=== PATIENT | male | born 1950 | race Caucasian/White ===

== ENCOUNTER 2017-07-10 18:05 | Emergency (ER) | payer OTHER ==
[~2017-07-10] VITALS: Ht 180.3 cm; Wt 105.0 kg
[2017-07-10 18:25] VITALS: BP 201/88; PULSE 79; RESP 16; TEMP 97.7; O2SAT 98
[2017-07-10] MEDS ORDERED: SODIUM CHLOR 0.9% 1000 ML INJ 1,000 ML IV SCH (19:44)
[2017-07-10] MEDS ORDERED: SODIUM CHLORIDE 0.9% FLUSH 10 ML FLUSH IVF PRN (19:45)
[2017-07-10 19:55] VITALS: RESP 18; O2SAT 97
[2017-07-10 20:10] VITALS: BP 160/75; PULSE 72; RESP 18; O2SAT 99
--- NOTE | 2017-07-10 20:34 | PD ---
HPI Chief Complaint: Complaint Time Seen by Provider: 19:18 Travel History International Travel<30 days: No Contact w/Intl Traveler<30days: No Traveled to known affect area: No History of Present Illness HPI 67 YO M with PMH of macular degeneration, Villanueva's esophagus, CKD, BPH, peripheral neuropathy, PTSD presents to the ED for evaluation of 5 day history of dark red urine. Patient states that he passed a lot of clot 4 days ago, called his primary care. He was placed on Cipro and has been compliant with the medication. He states that his urine is still very dark despite this treatment. He denies fever, chills, nausea, vomiting. He endorses bilateral back pain which he attributes to "kidney pain." He is a non-smoker for over 20 years. States that he has a baseline anemia around 12 or 13 that has been extensively explored with no acute findings. 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) Neurologic: Yes (WET MACULAR EYE INJECT) Psychiatric: Yes (PTSD) Immunizations Current: Yes Past Surgical History Eye Surgery: Yes Social History Alcohol Use: Yes Tobacco Use: No Substance Use: No Allergies-Medications (Allergen,Severity, Reaction): Coded Allergies: No Known Allergies (Unverified , 07/10/17) Reported Meds & Prescriptions Reported Meds & Active Scripts Active Reported Hydrocodone-Acetaminophen 7.5 Mg-325 Mg Tab 1 Tab PO Q6H PRN Xanax (Alprazolam) 0.5 Mg Tab 0.5 Mg PO Q6H PRN [place]-3 Fish Oil/Vitamin (Fish Oil-Cholecalciferol) 1,000-1,000 Mg Cap 2 Cap PO BID Terazosin (Terazosin HCl) 2 Mg Cap 4 Mg PO HS Ibuprofen 800 Mg Tab 800 Mg PO Q6HR PRN Prilosec (Omeprazole Magnesium) 20 Mg Tab 20 Mg PO BID Hydrochlorothiazide 25 Mg Tab 25 Mg PO DAILY Metoprolol Tartrate 50 Mg Tab 50 Mg PO BID Gabapentin 300 Mg Cap 900 Mg PO TID Review of Systems Except as stated in HPI: all other systems reviewed are Neg Physical Exam Narrative GENERAL: Well-nourished, well-developed white male no acute distress.. SKIN: Focused skin assessment warm/dry. HEAD: Normocephalic. EYES: No scleral icterus. No injection or drainage. NECK: Supple, trachea midline. No JVD or lymphadenopathy. CARDIOVASCULAR: Regular rate and rhythm without murmurs, gallops, or rubs. RESPIRATORY: Breath sounds equal bilaterally. No accessory muscle use. GASTROINTESTINAL: Abdomen soft, non-tender, nondistended. Active bowel sounds. Positive right-sided flank tenderness. MUSCULOSKELETAL: No cyanosis, or edema. BACK: Nontender without obvious deformity. Positive right-sided CVA tenderness. Data Data Last Documented VS Vital Signs Date Time Temp Pulse Resp B/P (MAP) Pulse Ox O2 Delivery O2 Flow Rate FiO2 07/10/17 22:11 07/10/17 20:10 72 18 99 Room Air 07/10/17 18:25 97.7 Orders Orders Basic Metabolic Panel (Bmp) (07/10/17 19:44) Complete Blood Count With Diff (07/10/17 19:44) Ua Includes Microscopic (07/10/17 19:44) Ct Abd/Pel W/O Iv Contrast (07/10/17 19:44) Sodium Chloride 0.9% Flush (Ns Flush) (07/10/17 19:45) Iv Access Insert/Monitor (07/10/17 19:44) Ecg Monitoring (07/10/17 19:44) Oximetry (07/10/17 19:44) NPO (07/10/17 19:44) Sodium Chlor 0.9% 1000 Ml Inj (Ns 1000 M (07/10/17 19:44) Potassium Chloride (Kcl) (07/10/17 21:15) Calcium Carbonate Chew (Tums Chew) (07/10/17 21:15) Ed Discharge Order (07/10/17 21:35) Labs Laboratory Tests Test 07/10/17 19:59 07/10/17 20:01 Urine Color LIGHT-RED Urine Turbidity HAZY Urine pH 6.0 Urine Specific [place] 1.012 Urine Protein 30 mg/dL Urine Glucose (UA) NEG mg/dL Urine Ketones NEG mg/dL Urine Occult Blood LARGE Urine Nitrite NEG Urine Bilirubin NEG Urine Urobilinogen LESS THAN 2.0 MG/DL Urine Leukocyte Esterase NEG Urine RBC 159 /hpf Urine WBC 30 /hpf Urine Squamous Epithelial Cells 1 /hpf Urine Bacteria RARE /hpf Urine Mucus FEW /lpf White Blood Count 5.1 TH/MM3 Red Blood Count 4.43 MIL/MM3 Hemoglobin 13.6 GM/DL Hematocrit 39.0 % Mean Corpuscular Volume 87.9 FL Mean Corpuscular Hemoglobin 30.7 PG Mean Corpuscular Hemoglobin Concent 34.9 % Red Cell Distribution Width 12.7 % Platelet Count 196 TH/MM3 Mean Platelet Volume 7.6 FL Neutrophils (%) (Auto) 49.6 % Lymphocytes (%) (Auto) 36.0 % Monocytes (%) (Auto) 10.7 % Eosinophils (%) (Auto) 3.1 % Basophils (%) (Auto) 0.6 % Neutrophils # (Auto) 2.5 TH/MM3 Lymphocytes # (Auto) 1.8 TH/MM3 Monocytes # (Auto) 0.5 TH/MM3 Eosinophils # (Auto) 0.2 TH/MM3 Basophils # (Auto) 0.0 TH/MM3 CBC Comment DIFF FINAL Differential Comment Blood Urea Nitrogen 21 MG/DL Creatinine 1.34 MG/DL Random Glucose 128 MG/DL Calcium Level 8.4 MG/DL Sodium Level 138 MEQ/L Potassium Level 3.3 MEQ/L Chloride Level 102 MEQ/L Carbon Dioxide Level 27.4 MEQ/L Anion Gap 9 MEQ/L Estimat Glomerular Filtration Rate 53 ML/MIN MDM Medical Decision Making Medical Screen Exam Complete: Yes Emergency Medical Condition: Yes Differential Diagnosis Hemorrhagic cystitis versus nephroureterolithiasis versus bladder tumor versus other Narrative Course 67 YO M with PMH of macular degeneration, Villanueva's esophagus, CKD, BPH, peripheral neuropathy, PTSD presents to the ED for evaluation of 5 day history of dark red urine. Patient states that he passed a lot of clot 4 days ago, called his primary care. He was placed on Cipro and has been compliant with the medication. He states that his urine is still very dark despite this treatment. States that he has a baseline anemia around 12 or 13 that has been extensively explored with no acute findings. Vitals reviewed. Patient is hypertensive in triage, this improves in the exam room. On exam the patient has some right-sided tenderness to palpation in right flank tenderness. No suprapubic pain noted. Urine is very cloudy. IV was established. Patient was ministered 1 L normal saline. CBC: WBC 5.1. Hemoglobin 13.6. Hematocrit 39.0. CMP: Potassium 3.3. BUN 21, creatinine 1.34. Calcium 8.4. UA: Light red, hazy, large occult blood, 159 RBCs, 30 WBCs. No culture indicated. CT abdomen pelvis: Multiple polypoid nodule from the wall of the urinary bladder , largest measuring 1.7 and 1.5 cm. Possibly TCC, cystoscopy recommended. No other acute findings. Potassium and calcium were replaced orally. I spoke with Dr. Hunter, on-call urologist by phone. He recommends close outpatient follow-up. I discussed the results of the workup with the patient. We discussed signs of anemia, urinary obstruction. The patient was provided a copy of his CT results. He is instructed to discontinue Cipro. He indicated good understanding of the discharge instructions. I think he is reliable for return if symptoms worsen. He is provided with Dr. Hunter' contact information. He is stable and discharged home. Diagnosis Primary Impression: Hematuria Qualified Codes: R31.9 - Hematuria, unspecified Additional Impression: Bladder tumor Referrals: Ambrosio Hunter MD Additional Instructions: Rest, hydrate. Resume at home medications as previously prescribed. Discontinue Cipro antibiotics as discussed. Call Dr. Hunter' office tomorrow for follow-up. Follow-up with Dr. Thomas as discussed, especially if there are delays with seeing Dr. Hunter. Return to the ED if you are unable to produce urine. Return to the ED for worsening symptoms or any urgent or emergent medical condition. Disposition: 01 DISCHARGE HOME Condition: Stable Katharine Lanza Jul 10, 2017 20:34
[2017-07-10 20:42] LABS: AUTOMATED NEUTROPHIL # 2.5 TH/MM3 (1.8-7.7); BASOPHIL % 0.6 % (0.0-2.0); EOSINOPHIL # 0.2 TH/MM3 (0-0.4); EOSINOPHIL % 3.1 % (0.0-4.0); HEMOGLOBIN 13.6 GM/DL (13.0-17.0); LYMPHOCYTE # 1.8 TH/MM3 (1.0-4.8); MEAN CELL VOLUME 87.9 FL (80.0-100.0); MEAN CORPUSCULAR HEMOGLOBIN 30.7 PG (27.0-34.0); MEAN CORPUSCULAR HGB CONC 34.9 % (32.0-36.0); MEAN PLATELET VOLUME 7.6 FL (7.0-11.0); MONO % 10.7 % (0.0-8.0); MONOCYTE # 0.5 TH/MM3 (0-0.9); NEUT % 49.6 % (16.0-70.0); PLATELET COUNT 196 TH/MM3 (150-450); RED BLOOD COUNT 4.43 MIL/MM3 (4.50-5.90); RED CELL DISTRIBUTION WIDTH 12.7 % (11.6-17.2); WHITE BLOOD COUNT 5.1 TH/MM3 (4.0-11.0)
--- NOTE | 2017-07-10 20:44 | RADRPT ---
EXAM DATE: 07/10/2017 8:26 PM EDT AGE/SEX: 67 years / Male INDICATIONS: Bilateral flank pain. CLINICAL DATA: This is the patient's initial encounter. Patient reports that signs and symptoms have been present for 1 day and indicates a pain score of 0/10. MEDICAL/SURGICAL HISTORY: Hypertension. Diabetes. None. RADIATION DOSE: 28.42 CTDI (mGy) COMPARISON: No prior [facility] exams available for comparison. TECHNIQUE: Multiple contiguous axial images were obtained through the abdomen. Images were obtained using multiple row detector helical technique. Using dose reduction techniques, radiation dose was ke pt as low as reasonably achievable to obtain optimal diagnostic quality images. FINDINGS: Lower Lungs: The visualized lower lungs are clear. Liver: The liver has a homogeneous density without space-occupying lesion. There is no dilation of th e biliary tree. Spleen: Homogeneous density without enlargement. Pancreas: Unremarkable without mass or calcification. Kidneys: Normal in size and shape. No evidence of mass or hydronephrosis. Adrenal Glands: Unremarkable. Aorta: The aorta and proximal iliac vessels are grossly unremarkable without aneurysmal dilation. Bowel/Mesentery: The bowel loops are grossly unremarkable. The cecum and sigmoid colon have a normal configuration. Abdominal Wall: Intact. Retroperitoneum: No evidence of adenopathy in the retrocrural, para-aortic, or deep pelvic regions. Bladder: Multiple polypoid nodules arise from the wall of the urinary bladder with the largest 2 rain suring 1.7 and 1.5 cm raising possibility of transitional cell carcinoma of the bladder. Cystoscopy w ould be helpful for further evaluation of these suspicious lesions. Reproductive Organs: No abnormal masses or calcifications seen. Inguinal: The inguinal region is unremarkable without evidence of adenopathy. Bony Structures: Degenerative changes and scoliosis of the thoracolumbar spine are noted. CONCLUSION: 1. Multiple polypoid nodules arise from the wall of the urinary bladder with the largest 2 measuring 1.7 and 1.5 cm raising possibility of transitional cell carcinoma of the bladder. Cystoscopy would b e helpful for further evaluation of these suspicious lesions. 2. Degenerative changes and scoliosis of the thoracolumbar spine. 3. No acute obstructive uropathy. Electronically signed by: Jose Quinones MD 07/10/2017 8:43 PM EDT
[2017-07-10 21:02] LABS: BICARBONATE 27.4 MEQ/L (21.0-32.0); CALCIUM 8.4 MG/DL (8.5-10.1); CREATININE 1.34 MG/DL (0.60-1.30)
[2017-07-10] MEDS ORDERED: CALCIUM CARBONATE 500 MG CHEWABLE TAB CHEW ONE (21:15)
[2017-07-10] MEDS ORDERED: POTASSIUM CHLORIDE 20 MEQ CONTROLLED RELEASE TAB PO ONE (21:15)
[2017-07-10 21:17] LABS: BACTERIA, URINE RARE /hpf; BILIRUBIN, URINE NEG (NEG); BLOOD, URINE LARGE (NEG); GLUCOSE,URINE NEG (NEG); KETONE, URINE NEG (NEG); MUCUS URINE FEW /lpf (OCC); NITRITE,URINE NEG (NEG); SQUAMOUS EPITHELIAL CELL URINE 1 /hpf (0-5); URINE LEUKOCYTE ESTERASE NEG (NEG)
[2017-07-10 21:20] LABS: URINE COLOR LIGHT-RED (YELLW/STRAW)
[2017-07-10] MEDS ORDERED: HYDR25TA5 PO (21:45)
[2017-07-10] MEDS ORDERED: HYDR-3580 PO (21:45)
[2017-07-10] MEDS ORDERED: PRIL20TA2 PO (21:45)
[2017-07-10] MEDS ORDERED: METO50TA PO (21:45)
[2017-07-10] MEDS ORDERED: IBUP1TAB7 PO (21:45)
[2017-07-10] MEDS ORDERED: OMEGCAP PO (21:45)
[2017-07-10] MEDS ORDERED: ALPR.5 PO (21:45)
[2017-07-10] MEDS ORDERED: TERA2CAP3 PO (21:45)
[2017-07-10] MEDS ORDERED: GABA300C5 PO (21:45)
== END 2017-07-10 22:17 | disposition home or self-care (01) ==
LOC: NEPC 18:05
DX: R31.9 Hematuria, unspecified (principal); D49.4 Neoplasm of unspecified behavior of bladder; D64.9 Anemia, unspecified; I12.9 Hypertensive chronic kidney disease with stage 1 through stage 4 chronic kidney disease, or unspecified chronic kidney disease; N18.9 Chronic kidney disease, unspecified; E78.00 Pure hypercholesterolemia, unspecified; N40.0 Benign prostatic hyperplasia without lower urinary tract symptoms; F43.10 Post-traumatic stress disorder, unspecified; Z79.2 Long term (current) use of antibiotics; Z79.899 Other long term (current) drug therapy
CPT/HCPCS: 74176; 80048; 81001; 85025; 96360; 99284; J7030